=== PATIENT | male | born 1950 | race Caucasian/White ===

== ENCOUNTER → 2017-07-22 | Outpatient (CLI) | payer OTHER | LOC: EDSTATUS 09:00 → CVU 09:08 | PROVIDERS: ATTEND Internal Medicine Cardiovascular Disease | DX: Q22.5 Ebstein's anomaly (principal); I48.2 Chronic atrial fibrillation; Z95.1 Presence of aortocoronary bypass graft | CPT/HCPCS: 93306 ==

== ENCOUNTER 2017-08-05 08:34 | Inpatient (IN) | payer OTHER ==
[~2017-08-05] VITALS: Ht 193 cm; Wt 100.9 kg
[2017-08-05] MEDS ORDERED: OXYcodone/APAP 5/325MG TABLET ONE (09:18)
[2017-08-05] MEDS ORDERED: OXYcodone/APAP 5/325MG TABLET PO ONE (09:30)
[2017-08-05 09:46] LABS: BASOPHILS # (AUTO) 0.02 x10^3/uL (0-0.1); BASOPHILS % (AUTO) 0 % (0-1); EOSINOPHILS # (AUTO) 0.02 x10^3/uL (0-0.4); EOSINOPHILS % (AUTO) 0 % (1-7); LYMPHOCYTES # (AUTO) 0.39 x10^3/uL (1-3.4); LYMPHOCYTES % (AUTO) 5 % (22-44); MD NO; MEAN CORPUSCULAR HEMOGLOBIN 30.4 pg (27.5-34.5); MEAN CORPUSCULAR HGB CONC 33.5 g/dL (33.2-36.2); MEAN CORPUSCULAR VOLUME 90.8 fL (81-97); MEAN PLATELET VOLUME 8.1 fL (7.4-10.4); MONOCYTES # (AUTO) 0.65 x10^3/uL (0.2-0.8); MONOCYTES % (AUTO) 9 % (2-9); NEUTROPHILS # (AUTO) 6.36 x10^3/uL (1.8-6.8); NEUTROPHILS % (AUTO) 86 % (42-75); PLATELET COUNT 106 x10^3/uL (130-400); RED BLOOD COUNT 4.21 x10^6/uL (4.38-5.82); RED CELL DISTRIBUTION WIDTH 14.1 % (9.4-14.8)
[2017-08-05 09:49] LABS: INTERNATIONAL NORMALIZED RATIO 1.48 (0.93-1.1); PROTHROMBIN TIME 15.3 Seconds (9.6-11.5)
[2017-08-05 09:56] LABS: ALBUMIN 3.6 g/dL (3.4-5.0); ANION GAP 7 mmol/L (5-15); CALCIUM 8.4 mg/dL (8.5-10.1); CHLORIDE 103 mmol/L (98-107)
[2017-08-05 10:01] LABS: ALANINE AMINOTRANSFERASE 25 U/L (12-78); ALKALINE PHOSPHATASE 46 U/L (45-117); BILIRUBIN,TOTAL 1.6 mg/dL (0.2-1.0); CREATININE 1.02 mg/dL (0.7-1.3); TOTAL PROTEIN 6.7 g/dL (6.4-8.2); TROPONIN I 0.016 ng/mL (0.000-0.045)
[2017-08-05] MEDS ORDERED: CEFTRIAXONE PMX 1GM/50ML 50 ML ONE (10:55)
[2017-08-05] MEDS ORDERED: AZITHROMYCIN 500 MG in SODIUM CHLORIDE 0.9% 250 ML IV ONE (11:00)
[2017-08-05] MEDS ORDERED: CEFTRIAXONE PMX 1GM/50ML 50 ML IV ONE (11:00)
[2017-08-05] MEDS ORDERED: ENOXAPARIN 100 MG/ML SQ ONE (11:00)
[2017-08-05] MEDS ORDERED: TAMS0.4C2 PO (11:14)
[2017-08-05] MEDS ORDERED: POTA20TA14 PO (11:14)
[2017-08-05] MEDS ORDERED: WARF-36 PO (11:14)
[2017-08-05] MEDS ORDERED: ATOR40TA PO (11:14)
[2017-08-05] MEDS ORDERED: DILT180C PO (11:14)
[2017-08-05] MEDS ORDERED: IRBE300T16 PO (11:14)
[2017-08-05] MEDS ORDERED: HYDR25TA6 PO (11:14)
[2017-08-05] MEDS ORDERED: ONDANSETRON 2MG/ML, 2ML IVPush PRN ×2 (12:00→12:30)
[2017-08-05] MEDS ORDERED: hydrALAzine 20 MG/ML, 1ML IVPush PRN (12:00)
[2017-08-05] MEDS ORDERED: MORPHINE SULFATE 4 MG/ML, 1ML IVPush PRN (12:00)
[2017-08-05] MEDS ORDERED: TEMAZEPAM 15 MG CAPSULE PO PRN (12:00)
[2017-08-05] MEDS ORDERED: ACETAMINOPHEN 325 MG TABLET PO PRN (12:00)
[2017-08-05 12:31] VITALS: BP 117/69
[2017-08-05] MEDS: ENOXAPARIN 100 MG/ML SQ SCH (14:08)
[2017-08-05 19:10] VITALS: BP 116/70
[2017-08-05] MEDS: ATORVASTATIN 40 MG TABLET PO SCH (20:31)
[2017-08-05] MEDS: HYDROcodone/APAP 5/325 TABLET PO PRN (20:31)
[2017-08-05] MEDS: CEFTRIAXONE PMX 2GM/50ML 50 ML IV SCH (23:10)
[2017-08-06 01:55] VITALS: BP 122/75
[2017-08-06] MEDS: ENOXAPARIN 100 MG/ML SQ SCH ×2 (02:01→14:07)
[2017-08-06 04:53] LABS: BASOPHILS # (AUTO) 0.04 x10^3/uL (0-0.1); BASOPHILS % (AUTO) 1 % (0-1); EOSINOPHILS # (AUTO) 0.26 x10^3/uL (0-0.4); EOSINOPHILS % (AUTO) 5 % (1-7); LYMPHOCYTES # (AUTO) 1.03 x10^3/uL (1-3.4); LYMPHOCYTES % (AUTO) 21 % (22-44); MD NO; MEAN CORPUSCULAR HEMOGLOBIN 30.8 pg (27.5-34.5); MEAN CORPUSCULAR HGB CONC 33.7 g/dL (33.2-36.2); MEAN CORPUSCULAR VOLUME 91.3 fL (81-97); MEAN PLATELET VOLUME 8.1 fL (7.4-10.4); MONOCYTES # (AUTO) 0.66 x10^3/uL (0.2-0.8); MONOCYTES % (AUTO) 13 % (2-9); NEUTROPHILS # (AUTO) 2.95 x10^3/uL (1.8-6.8); NEUTROPHILS % (AUTO) 60 % (42-75); PLATELET COUNT 104 x10^3/uL (130-400); RED BLOOD COUNT 3.89 x10^6/uL (4.38-5.82); RED CELL DISTRIBUTION WIDTH 14.1 % (9.4-14.8)
[2017-08-06 04:57] LABS: INTERNATIONAL NORMALIZED RATIO 1.4 (0.93-1.1); PROTHROMBIN TIME 14.5 Seconds (9.6-11.5)
[2017-08-06 05:02] LABS: ALBUMIN 3.2 g/dL (3.4-5.0); ANION GAP 5 mmol/L (5-15); CALCIUM 7.8 mg/dL (8.5-10.1); CHLORIDE 103 mmol/L (98-107)
[2017-08-06 05:07] LABS: % IRON SATURATION 12 % (20-55); ALANINE AMINOTRANSFERASE 23 U/L (12-78); ALKALINE PHOSPHATASE 42 U/L (45-117); BILIRUBIN,TOTAL 1.3 mg/dL (0.2-1.0); CREATININE 0.85 mg/dL (0.7-1.3); IRON LEVEL 31 mcg/dL (65-175); TOTAL IRON BINDING CAPACITY 258 mcg/dL (250-450); TOTAL PROTEIN 6.2 g/dL (6.4-8.2)
[2017-08-06 06:47] VITALS: BP 130/70
[2017-08-06] MEDS ORDERED: IRBESARTAN 300 MG TABLET PO SCH (09:00)
[2017-08-06] MEDS ORDERED: WARFARIN 5 MG TABLET PO-COUM SCH (09:00)
[2017-08-06] MEDS: DILTIAZEM CD 180 MG CAP.ER.24H PO SCH (09:35)
[2017-08-06] MEDS: POTASSIUM CHLORIDE 20 MEQ TAB.ER.PRT PO SCH (09:35)
[2017-08-06] MEDS: TAMSULOSIN 0.4 MG CAP.ER.24H PO SCH (09:35)
[2017-08-06] MEDS: HYDROCHLOROTHIAZIDE 25 MG TABLET PO SCH (09:35)
[2017-08-06] MEDS: IRBESARTAN 300 MG TABLET PO SCH (09:36)
[2017-08-06] MEDS: HYDROcodone/APAP 5/325 TABLET PO PRN ×3 (10:00→22:11)
[2017-08-06] MEDS ORDERED: CITA20TA5 PO (10:21)
[2017-08-06 13:08] VITALS: BP 110/61
[2017-08-06] MEDS: AZITHROMYCIN 500 MG in SODIUM CHLORIDE 0.9% 250 ML IV SCH (14:05)
[2017-08-06] MEDS: FERROUS SULFATE 325 MG TABLET PO SCH ×2 (14:07→21:32)
[2017-08-06] MEDS: WARFARIN 3 MG TABLET PO-COUM SCH (18:14)
[2017-08-06 19:12] VITALS: BP 123/76
[2017-08-06] MEDS: ATORVASTATIN 40 MG TABLET PO SCH (21:32)
[2017-08-06] MEDS: CEFTRIAXONE PMX 2GM/50ML 50 ML IV SCH (22:11)
[2017-08-07 01:14] VITALS: BP 118/72
[2017-08-07] MEDS: HYDROcodone/APAP 5/325 TABLET PO PRN ×2 (01:47→21:53)
[2017-08-07] MEDS: ENOXAPARIN 100 MG/ML SQ SCH ×2 (01:49→14:12)
[2017-08-07 04:50] LABS: INTERNATIONAL NORMALIZED RATIO 1.31 (0.93-1.1); PROTHROMBIN TIME 13.6 Seconds (9.6-11.5)
[2017-08-07 07:10] VITALS: BP 114/64
[2017-08-07] MEDS: FERROUS SULFATE 325 MG TABLET PO SCH ×3 (08:34→17:31)
[2017-08-07] MEDS: CITALOPRAM 20 MG TABLET PO SCH (08:35)
[2017-08-07] MEDS: IRBESARTAN 300 MG TABLET PO SCH (08:35)
[2017-08-07] MEDS: TAMSULOSIN 0.4 MG CAP.ER.24H PO SCH (08:35)
[2017-08-07] MEDS: DILTIAZEM CD 180 MG CAP.ER.24H PO SCH (08:35)
[2017-08-07] MEDS: POTASSIUM CHLORIDE 20 MEQ TAB.ER.PRT PO SCH (08:36)
[2017-08-07] MEDS: HYDROCHLOROTHIAZIDE 25 MG TABLET PO SCH (08:36)
[2017-08-07] MEDS: ALBUTEROL/IPRATROPIUM 2.5MG/0.5MG, 3 ML NPPB SCH ×3 (11:00→19:28)
[2017-08-07] MEDS ORDERED: ALBUTEROL/IPRATROPIUM 2.5MG/0.5MG, 3 ML NPPB PRN (11:00)
[2017-08-07] MEDS: AZITHROMYCIN 500 MG in SODIUM CHLORIDE 0.9% 250 ML IV SCH (14:12)
[2017-08-07 15:28] VITALS: BP 125/64
[2017-08-07] MEDS: WARFARIN 3 MG TABLET PO-COUM SCH (17:35)
[2017-08-07 19:07] VITALS: BP 117/70
[2017-08-07] MEDS: ATORVASTATIN 40 MG TABLET PO SCH (21:53)
[2017-08-07] MEDS: CEFTRIAXONE PMX 2GM/50ML 50 ML IV SCH (23:13)
[2017-08-08 02:00] VITALS: BP 115/72
[2017-08-08] MEDS: ENOXAPARIN 100 MG/ML SQ SCH ×2 (02:13→13:33)
[2017-08-08 05:32] LABS: CHLORIDE 104 mmol/L (98-107)
[2017-08-08 05:37] LABS: ALANINE AMINOTRANSFERASE 26 U/L (12-78); ALBUMIN 3.2 g/dL (3.4-5.0); ALKALINE PHOSPHATASE 40 U/L (45-117); ANION GAP 6 mmol/L (5-15); BILIRUBIN,TOTAL 0.5 mg/dL (0.2-1.0); CREATININE 0.82 mg/dL (0.7-1.3); TOTAL PROTEIN 6.1 g/dL (6.4-8.2)
[2017-08-08 05:41] LABS: BASOPHILS # (AUTO) 0.03 x10^3/uL (0-0.1); BASOPHILS % (AUTO) 1 % (0-1); EOSINOPHILS # (AUTO) 0.14 x10^3/uL (0-0.4); EOSINOPHILS % (AUTO) 4 % (1-7); LYMPHOCYTES # (AUTO) 1.31 x10^3/uL (1-3.4); LYMPHOCYTES % (AUTO) 34 % (22-44); MD NO; MEAN CORPUSCULAR HEMOGLOBIN 30.5 pg (27.5-34.5); MEAN CORPUSCULAR HGB CONC 33.4 g/dL (33.2-36.2); MEAN CORPUSCULAR VOLUME 91.4 fL (81-97); MONOCYTES # (AUTO) 0.42 x10^3/uL (0.2-0.8); MONOCYTES % (AUTO) 11 % (2-9); NEUTROPHILS % (AUTO) 50 % (42-75); PLATELET COUNT 122 x10^3/uL (130-400); RED BLOOD COUNT 3.82 x10^6/uL (4.38-5.82); RED CELL DISTRIBUTION WIDTH 13.8 % (9.4-14.8)
[2017-08-08 06:35] LABS: INTERNATIONAL NORMALIZED RATIO 1.31 (0.93-1.1); PROTHROMBIN TIME 13.6 Seconds (9.6-11.5)
[2017-08-08] MEDS: ALBUTEROL/IPRATROPIUM 2.5MG/0.5MG, 3 ML NPPB SCH ×4 (07:00→19:28)
[2017-08-08 07:30] VITALS: BP 129/64
[2017-08-08] MEDS: FERROUS SULFATE 325 MG TABLET PO SCH ×3 (08:56→17:38)
[2017-08-08] MEDS: TAMSULOSIN 0.4 MG CAP.ER.24H PO SCH (08:56)
[2017-08-08] MEDS: DILTIAZEM CD 180 MG CAP.ER.24H PO SCH (08:56)
[2017-08-08] MEDS: POTASSIUM CHLORIDE 20 MEQ TAB.ER.PRT PO SCH (08:56)
[2017-08-08] MEDS: CITALOPRAM 20 MG TABLET PO SCH (08:56)
[2017-08-08] MEDS: HYDROCHLOROTHIAZIDE 25 MG TABLET PO SCH (08:57)
[2017-08-08] MEDS: IRBESARTAN 300 MG TABLET PO SCH (09:00)
[2017-08-08 12:31] VITALS: BP 148/80
[2017-08-08] MEDS: AZITHROMYCIN 500 MG in SODIUM CHLORIDE 0.9% 250 ML IV SCH (13:33)
[2017-08-08] MEDS: WARFARIN 3 MG TABLET PO-COUM SCH (17:38)
[2017-08-08] MEDS: ATORVASTATIN 40 MG TABLET PO SCH (20:11)
[2017-08-08 20:27] VITALS: BP 143/75
[2017-08-08] MEDS: HYDROcodone/APAP 5/325 TABLET PO PRN (23:05)
[2017-08-08] MEDS: CEFTRIAXONE PMX 2GM/50ML 50 ML IV SCH (23:05)
[2017-08-09] MEDS: ENOXAPARIN 100 MG/ML SQ SCH ×2 (02:02→13:41)
[2017-08-09 02:03] VITALS: BP 117/74
[2017-08-09 05:07] LABS: INTERNATIONAL NORMALIZED RATIO 1.33 (0.93-1.1); PROTHROMBIN TIME 13.8 Seconds (9.6-11.5)
[2017-08-09] MEDS: HYDROcodone/APAP 5/325 TABLET PO PRN (05:44)
[2017-08-09] MEDS: ALBUTEROL/IPRATROPIUM 2.5MG/0.5MG, 3 ML NPPB SCH ×3 (07:37→15:00)
[2017-08-09] MEDS: TAMSULOSIN 0.4 MG CAP.ER.24H PO SCH (08:03)
[2017-08-09] MEDS: HYDROCHLOROTHIAZIDE 25 MG TABLET PO SCH (08:03)
[2017-08-09] MEDS: FERROUS SULFATE 325 MG TABLET PO SCH ×2 (08:04→12:51)
[2017-08-09] MEDS: POTASSIUM CHLORIDE 20 MEQ TAB.ER.PRT PO SCH (08:04)
[2017-08-09] MEDS: DILTIAZEM CD 180 MG CAP.ER.24H PO SCH (08:04)
[2017-08-09] MEDS: CITALOPRAM 20 MG TABLET PO SCH (08:05)
[2017-08-09 08:40] VITALS: BP 148/73
[2017-08-09] MEDS: IRBESARTAN 300 MG TABLET PO SCH (09:00)
[2017-08-09] MEDS ORDERED: AZIT500T5 PO (11:30)
[2017-08-09] MEDS ORDERED: ENOX100S4 SQ (11:30)
[2017-08-09] MEDS ORDERED: GUAI1TBM11 PO (11:30)
[2017-08-09] MEDS ORDERED: CEFD300C37 PO (11:30)
[2017-08-09] MEDS ORDERED: WARF7.5T PO (11:30)
[2017-08-09 12:48] VITALS: BP 131/81
[2017-08-09] MEDS: AZITHROMYCIN 500 MG in SODIUM CHLORIDE 0.9% 250 ML IV SCH (13:30)
[2017-08-09] MEDS ORDERED: WARFARIN 5 MG TABLET PO-COUM SCH (18:00)
[2017-08-09] MEDS ORDERED: WARFARIN 2 MG TABLET PO-COUM SCH (18:00)
== END 2017-08-09 15:00 | disposition home or self-care (01) | DRG 193 ==
LOC: ED 11:10 → 3NW 11:11 → ED 11:33 → SUATTDRO 11:40 → ED 11:52 → 3NW 11:52 → ED 12:00
PROVIDERS: ADMIT Internal Medicine; ATTEND Internal Medicine
DX: J18.9 Pneumonia, unspecified organism (principal); J96.01 Acute respiratory failure with hypoxia; D68.69 Other thrombophilia; I27.20 Pulmonary hypertension, unspecified; I48.2 Chronic atrial fibrillation; Z99.81 Dependence on supplemental oxygen; D50.9 Iron deficiency anemia, unspecified; E78.5 Hyperlipidemia, unspecified; N40.0 Benign prostatic hyperplasia without lower urinary tract symptoms; I11.9 Hypertensive heart disease without heart failure; Z79.01 Long term (current) use of anticoagulants; Z87.891 Personal history of nicotine dependence; Q24.8 Other specified congenital malformations of heart; Z95.2 Presence of prosthetic heart valve; Z79.899 Other long term (current) drug therapy; Z82.49 Family history of ischemic heart disease and other diseases of the circulatory system; Z80.9 Family history of malignant neoplasm, unspecified; Z88.0 Allergy status to penicillin
CPT/HCPCS: 36415; 71045; 80053; 83540; 83550; 83735; 83880; 84100; 84484; 85025; 85610; 87040; 87070; 87205; 93005; 94640; 96365; 96372; J0456; J0696; J1650; J7620; J7050

== ENCOUNTER → 2018-09-02 | Outpatient (CLI) | payer MEDICARE, OTHER ==
[~2018-09-02] MED LIST: ALBUTEROL INH; ATOR40TA PO; AZIT500T5 PO; CEFD300C37 PO; CITA20TA6 PO; DILT180C PO; ENOX100S4 SQ; FURO20TA3 PO; GUAI1TBM11 PO; HYDR25TA6 PO; IRBE300T16 PO; POTA20TA14 PO; TAMS0.4C2 PO; WARF-36 PO; WARF7.5T PO; WARF7.5T46 PO
== END | disposition home or self-care (01) ==
LOC: CVU 07:56
PROVIDERS: ATTEND Registered Nurse
DX: I08.1 Rheumatic disorders of both mitral and tricuspid valves (principal)
CPT/HCPCS: 93306

== ENCOUNTER 2018-09-15 09:39 | Day surgery (SDC) | payer OTHER ==
[~2018-09-15] VITALS: Ht 193 cm; Wt 102.3 kg
[~2018-09-15 09:39] MED LIST changes: -ALBUTEROL INH; -FURO20TA3 PO; -WARF7.5T46 PO
[2018-09-15] MEDS ORDERED: SODIUM CHLORIDE 0.9% 1,000 ML IV SCH ×2 (10:20→12:31)
[2018-09-15 10:23] VITALS: BP 129/76
[2018-09-15] MEDS ORDERED: WARF-36 PO (10:38)
[2018-09-15] MEDS ORDERED: WARF7.5T46 PO (10:38)
[2018-09-15] MEDS ORDERED: FURO20TA3 PO (10:38)
[2018-09-15] MEDS ORDERED: ALBUTEROL INH (10:40)
[2018-09-15 10:41] LABS: BASOPHILS # (AUTO) 0.03 x10^3/uL (0-0.1); BASOPHILS % (AUTO) 1 % (0-1); EOSINOPHILS # (AUTO) 0.18 x10^3/uL (0-0.4); EOSINOPHILS % (AUTO) 5 % (1-7); LYMPHOCYTES # (AUTO) 1.14 x10^3/uL (1-3.4); LYMPHOCYTES % (AUTO) 30 % (22-44); MD NO; MEAN CORPUSCULAR HEMOGLOBIN 29.4 pg (27.5-34.5); MEAN CORPUSCULAR HGB CONC 32.7 g/dL (33.2-36.2); MEAN CORPUSCULAR VOLUME 89.8 fL (81-97); MEAN PLATELET VOLUME 8.1 fL (7.4-10.4); MONOCYTES # (AUTO) 0.41 x10^3/uL (0.2-0.8); MONOCYTES % (AUTO) 11 % (2-9); NEUTROPHILS # (AUTO) 2.04 x10^3/uL (1.8-6.8); NEUTROPHILS % (AUTO) 54 % (42-75); PLATELET COUNT 108 x10^3/uL (130-400); RED BLOOD COUNT 4.46 x10^6/uL (4.38-5.82); RED CELL DISTRIBUTION WIDTH 14.6 % (9.4-14.8)
[2018-09-15 10:50] LABS: ANION GAP 7 mmol/L (5-15); CALCIUM 9.5 mg/dL (8.5-10.1); CHLORIDE 104 mmol/L (98-107); CREATININE 1.09 mg/dL (0.7-1.3)
[2018-09-15 10:52] LABS: INTERNATIONAL NORMALIZED RATIO 1.31 (0.93-1.1); PROTHROMBIN TIME 13.6 Seconds (9.6-11.5)
[2018-09-15] MEDS ORDERED: FENTANYL PF 100 MCG/2ML ONE (11:41)
[2018-09-15] MEDS ORDERED: LIDOCAINE-MPF 1%, 5ML ONE (11:41)
[2018-09-15] MEDS ORDERED: MIDAZOLAM 1 MG/ML, 2ML ONE (11:41)
[2018-09-15] MEDS ORDERED: VERAPAMIL 2.5 MG/ML, 2ML ONE (11:41)
[2018-09-15] MEDS ORDERED: HEPARIN 1,000 UNITS/ML, 10ML ONE (11:41)
== END 2018-09-15 15:17 | disposition home or self-care (01) ==
LOC: CACL 09:39
PROVIDERS: ATTEND Internal Medicine Cardiovascular Disease
DX: R07.89 Other chest pain (principal); I10 Essential (primary) hypertension; I48.2 Chronic atrial fibrillation; I36.1 Nonrheumatic tricuspid (valve) insufficiency; E78.5 Hyperlipidemia, unspecified; Z88.0 Allergy status to penicillin
CPT/HCPCS: 36415; 80048; 85025; 85610; 93458; 99156; C1894; J1644; J2250; J3010; Q9967

== ENCOUNTER → 2019-08-27 | Outpatient (CLI) | payer MEDICARE ==
[~2019-08-27] MED LIST changes: +ALBUTEROL INH; +ASPI81TA45 PO; +AZIT500T10 PO; -AZIT500T5 PO; -DILT180C PO; +DILT180C76 PO; +FERR-51 PO; +FURO20TA3 PO; +HYDR-3245 PO; +IRBE150T49 PO; -IRBE300T16 PO; +IRBE300T8 PO; +LIDO700A20 TD; +POTASSIUM; +WARF10TA43 PO; +WARF7.5T46 PO
== END | disposition home or self-care (01) ==
LOC: CFH 10:08
PROVIDERS: ATTEND Internal Medicine Cardiovascular Disease
DX: J90 Pleural effusion, not elsewhere classified (principal); I10 Essential (primary) hypertension; I48.91 Unspecified atrial fibrillation; I51.7 Cardiomegaly; Z95.0 Presence of cardiac pacemaker
CPT/HCPCS: 71046

== ENCOUNTER → 2019-09-03 | Outpatient (CLI) | payer MEDICARE ==
[~2019-09-03] MED LIST changes: +LIDOCAINE 1%, 10ML ONE
== END | disposition home or self-care (01) ==
LOC: RAD 10:06
PROVIDERS: ATTEND Internal Medicine Cardiovascular Disease
DX: J90 Pleural effusion, not elsewhere classified (principal)
CPT/HCPCS: 32555; 71045; 83615; 84157; 87070; 87116; 87205; 87206; 88112; 88305; 89051

== ENCOUNTER → 2020-07-29 | Outpatient (CLI) | payer MEDICARE ==
[~2020-07-29] MED LIST changes: -HYDR-3245 PO; +HYDR1TAB53 PO; -LIDOCAINE 1%, 10ML ONE
== END | disposition home or self-care (01) ==
LOC: RAD 14:11
PROVIDERS: ATTEND Physician Assistant Medical
DX: J98.4 Other disorders of lung (principal); R91.8 Other nonspecific abnormal finding of lung field; J91.8 Pleural effusion in other conditions classified elsewhere; I51.7 Cardiomegaly; Z95.0 Presence of cardiac pacemaker
CPT/HCPCS: 71250

== ENCOUNTER → 2020-10-10 | Outpatient (CLI) | payer MEDICARE | END | disposition home or self-care (01) | LOC: CFH 15:23 | PROVIDERS: ATTEND Nurse Practitioner Family | DX: I08.8 Other rheumatic multiple valve diseases (principal); I48.91 Unspecified atrial fibrillation; Z87.891 Personal history of nicotine dependence | CPT/HCPCS: 93306 ==